=== PATIENT | male | born 1975 | race American Indian/Alaskan Native ===

== ENCOUNTER 2019-04-17 16:59 | Emergency (ER) | payer OTHER ==
[2019-04-17 17:12] VITALS: BP 121/104; PULSE 83; TEMP 98.3; BMI 21.1
== END 2019-04-17 19:20 | disposition left against medical advice (07) ==
LOC: JER 16:59
DX: Z53.21 Procedure and treatment not carried out due to patient leaving prior to being seen by health care provider (principal)
CPT/HCPCS: 99281-25